=== PATIENT | male | born 2000 | race Caucasian/White ===

== ENCOUNTER 2022-11-25 21:39 | Emergency (ER) | payer BC ==
[~2022-11-25] VITALS: Ht 188 cm; Wt 81.0 kg
[2022-11-25] MEDS ORDERED: AMOX/K CLAV875 M1 PO (22:46)
[2022-11-25 23:31] VITALS: BP 140/93
== END 2022-11-25 23:36 | disposition home or self-care (01) | DRG 605 ==
LOC: ED 21:39
PROC: 0HQEXZZ Repair Left Lower Arm Skin, External Approach (ICD-10-PCS; principal; 2022-11-25)
DX: S51.852A Open bite of left forearm, initial encounter (principal); W55.31XA Bitten by other hoof stock, initial encounter; Y93.89 Activity, other specified